=== PATIENT | female | born 2005 | race Caucasian/White ===

== ENCOUNTER → 2023-11-29 | Outpatient (CLI) | payer OTHER | LOC: LAB SHORT 19:19 → LAB 19:19 | DX: Z32.01 Encounter for pregnancy test, result positive (principal) | CPT/HCPCS: 84702 ==

== ENCOUNTER → 2024-05-13 | Outpatient (CLI) | payer OTHER | END | disposition home or self-care (01) | LOC: LAB 14:20 → LAB SHORT 14:20 | DX: L98.9 Disorder of the skin and subcutaneous tissue, unspecified (principal) | CPT/HCPCS: 88304 ==

== ENCOUNTER 2025-03-26 07:13 | Emergency (ER) | payer OTHER ==
[~2025-03-26] VITALS: Ht 172.7 cm; Wt 66.7 kg
[2025-03-26] MEDS ORDERED: Ketorolac Tromethamine 15mg Vial IV ONE (08:55)
[2025-03-26] MEDS ORDERED: NS 1,000 ML IV SCH (08:55)
[2025-03-26] MEDS ORDERED: Ketorolac Tromethamine 30mg Vial IM ONE (09:05)
[2025-03-26 09:19] LABS: BASOPHILS ABSOLUTE AUTO 0.04 K/mm3 (0.00-0.23); BASOPHILS PERCENT AUTO 0 % (0-2); EOSINOPHILS ABSOLUTE AUTO 0.13 K/mm3 (0.00-0.68); EOSINOPHILS PERCENT AUTO 1 % (0-6); Hematocrit 41.3 % (33.0-51.0); Hemoglobin 13.7 g/dL (11.5-16.0); IMMATURE GRAN ABSOLUTE AUTO 0.03 K/mm3 (0.00-0.10); IMMATURE GRAN PERCENT AUTO 0 % (0-1); LYMPHOCYTES ABSOLUTE AUTO 1.98 K/mm3 (0.84-5.20); LYMPHOCYTES PERCENT AUTO 18 % (21-46); MONOCYTES ABSOLUTE AUTO 0.92 K/mm3 (0.16-1.47); MONOCYTES PERCENT AUTO 9 % (4-13); Mean Corpuscular HGB Conc 33.2 g/dL (31.5-36.5); Mean Corpuscular Volume 83 fL (80-100); NEUTROPHILS ABSOLUTE AUTO 7.65 K/mm3 (1.96-9.15); NEUTROPHILS PERCENT AUTO 71 % (41-73); NRBC ABSOLUTE 0.00 K/mm3 (0.00-0.02); NRBC Auto 0.0 /100 WBC (0.0-0.2); Platelet Count 339 K/mm3 (150-400); RDW Coefficient Variation 12.5 % (11.7-14.2); RDW Standard Deviation 38.3 fL (35.1-46.3)
[2025-03-26 09:42] LABS: Alanine Aminotransfer (ALT/SGP 28.0 U/L (12-78); Albumin, Blood 4.0 g/dL (3.4-5.0); Albumin/Globulin Ratio 1.0 (0.8-1.8); Anion Gap 5.0 mmol/L (3-11); Aspartate Aminotrans (AST/SGOT 14.0 U/L (12-37); Bilirubin, Total 0.3 mg/dL (0.1-1.0); Blood Urea Nitrogen 15.0 mg/dL (8-24); CO2, Blood 27.0 mmol/L (21-32); Calcium, Blood 9.1 mg/dL (8.5-10.1); Chloride, Blood 105.0 mmol/L (98-108); Creatinine, Blood 0.7 mg/dL (0.40-1.00); Globulin, Blood 4.2 g/dL (2.2-4.0); Glucose, Blood 92.0 mg/dL (70-99); Potassium, Blood 3.4 mmol/L (3.5-5.5); Sodium, Blood 134.0 mmol/L (136-145); Total Protein, Blood 8.2 g/dL (6.4-8.2)
[2025-03-26] MEDS ORDERED: Amoxicillin875 MG PO (11:15)
[2025-03-26] MEDS ORDERED: Floxin10 ML LEFTEAR (11:15)
== END 2025-03-26 11:41 | disposition home or self-care (01) ==
LOC: ER 07:13
PROVIDERS: Physician Assistant
DX: H66.92 Otitis media, unspecified, left ear (principal); Z59.89 Other problems related to housing and economic circumstances; Z91.018 Allergy to other foods
CPT/HCPCS: 70481; 80053; 85025; 96374-59; 99283-25; J1885; J7030; Q9967